=== PATIENT | female | born 1945 | race Caucasian/White ===

== ENCOUNTER 2016-06-17 05:33 | Observation (INO) | payer OTHER, MEDICARE ==
--- NOTE | ~2016-06-17 | OP ---
Record Of Operation [facility] [address] [place]. [address] NAME: LUIZ MAN : 43 STATUS : ADM Ayesha PAT#: [id number] AGE: 71 ADM/REG DATE : 06/17/16 MR#: [id number] REPORT SERV DATE: 06/17/16 DICTATED BY: OMNTY ROMO DATE: 06/17/16 REPORT STATUS : Draft TRANSCRIBED BY: MODL DATE: 06/17/16 DATE OF PROCEDURE: 06/17/2016 CARDIOVERSION REPORT PRIMARY SOIL ENGINEER: Lucy Lal MD. PROCEDURES: Elective external cardioversion. DESCRIPTION: Luiz Man brought to the short-stay unit at [facility] in a fasting state. The patient was properly identified and informed consent obtained. INRs have been demonstrated to be therapeutic over the preceding month. The patient received propofol for sedation. When she was deemed to be hemodynamically stable and adequately sedated, a single 360 joule biphasic energy delivery was performed, which resulted in initially a marked junctional bradycardia, then transition to sinus rhythm. IMPRESSION: Successful cardioversion, ending rhythm sinus. ZIA/MARISSA Monty Romo M.D. / [id number] CC: Lynne Martinez, MSN, TRAVEL FREIGHT AND PASSENGER AGENT-BC TIM Rojas
--- NOTE | ~2016-06-17 | HP ---
History And Physical [address] [place]. [address] NAME: LUIZ MAN : 43 STATUS : ADM Ayesha PAT#: [id number] AGE: 71 ADM/REG DATE : 06/17/16 MR#: [id number] REPORT SERV DATE: 06/17/16 DICTATED BY: SINDY SWIFT DATE: 06/17/16 REPORT STATUS : Draft TRANSCRIBED BY: MODL DATE: 06/17/16 DATE OF ADMISSION: 06/17/2016 PRIMARY CARE PROVIDER: Lucy Malagon MD in [place]. INSURANCE ASSOCIATE: Yg Trujillo M.D. DRAMATIC ART TEACHER: Lucy Lal M.D. CHIEF COMPLAINT: Atrial fibrillation with RVR, increased difficulty breathing on top of chronic dyspnea and nonproductive cough. HISTORY OF PRESENT ILLNESS: This is a pleasant, 71-year-old, white female with a history of DVT and acute pulmonary emboli in March 2016 with currently a supratherapeutic INR today with a history of paroxysmal atrial fibrillation in the setting of acute PE in March 2016. She reports that she has had chronic dyspnea with nonproductive productive cough for years, this has not had an evaluation. She reports this has been worse since March 2016. She denies any edema or orthopnea. She has no diagnosis of asthma or COPD. She is not on home oxygen. Her primary care provider asked her to take sugar-free cough drops for this, which do not fully help per patient. Also, she has a history of high blood pressure, high cholesterol, obesity, and debility. She also has a history of nonobstructive CAD per cath arteriogram, 11/27/2012, with a preserved ejection fraction at that time. Echocardiogram, 03/16/2016, reported mild biatrial enlargement with a preserved ejection fraction. She presents to the emergency department overnight because she had increased dyspnea with labored breathing. This was on top of her chronic mild dyspnea and nonproductive cough. She denies any chest pain, palpitations, syncope, presyncope. There was no edema or orthopnea. She reports she possibly had a slight fever to touch a few days ago, but denies any specific complaints at this time other than previously addressed. Again, she has a chronic nonproductive cough and a worsened pulmonary emboli in March. PAST MEDICAL HISTORY: 1. Chronic cough of unknown etiology, worsened acute pulmonary emboli in the fall. 2. DVT and acute pulmonary emboli diagnosed in March 2016, on chronic Coumadin anticoagulation. 3. Hypertension. 4. Hyperlipidemia. 5. Mild nonobstructive coronary artery disease per cath arteriogram, 11/27/2012. 6. Diabetes mellitus type 2. 7. Paroxysmal atrial fibrillation episode in the setting of pulmonary emboli, March 2016. 8. Anemia, on chronic iron supplementation. 9. Mild constipation. 10.Mild renal insufficiency, followed by Dr. Trujillo. 11.Rosacea, on doxycycline chronically. 12.Arthritis in the knees. 13.Wobbly/unsteady gait with subsequent lack of mobility. History And Physical [address] [address] NAME: LUIZ MAN : 43 STATUS : ADM Ayesha PAT#: [id number] AGE: 71 ADM/REG DATE : 06/17/16 MR#: [id number] REPORT SERV DATE: 06/17/16 DICTATED BY: SINDY SWIFT DATE: 06/17/16 REPORT STATUS : Draft TRANSCRIBED BY: MARISSA DATE: 06/17/16 SOCIAL HISTORY: . Remote tobacco use in the 20s. She quit at the age of 29 after smoking less than one pack per week. She denies any alcohol or illicit drug use. She denies any exercise program because she "does not feel like I can do it" since pulmonary emboli. She reports that she is very wobbly, but does not own an assistive device. She reports that she is unable to complete a shopping trip due to the above symptoms. No chest pain with exertion. No palpitations with exertion. FAMILY HISTORY: Noncontributory for arrhythmia. Two brothers with myocardial infarctions. REVIEW OF SYSTEMS: Last echocardiogram, March 2016, please see discussion above. Last cath arteriogram, 11/27/2012, with nonobstructive coronary artery disease as above per HPI. All other systems reviewed and negative. ALLERGIES: NO KNOWN ALLERGIES. HOME MEDICATIONS: List reviewed and is as follows: 1. Doxycycline 100 mg p.o. daily. 2. Ferrous sulfate 325 mg p.o. daily. 3. Amaryl 2 mg p.o. daily. 4. Glucosamine chondroitin one tablet p.o. daily. 5. Lisinopril/HCTZ one tablet p.o. daily. 6. Metoprolol tartrate 25 mg p.o. twice per day. 7. Protonix 40 mg p.o. daily. 8. MiraLAX one packet p.o. daily p.r.n. constipation. 9. Simvastatin 40 mg p.o. daily. 10.Jantoven 4 mg p.o. daily afternoon. This is managed by primary care provider. PHYSICAL EXAMINATION: VITAL SIGNS: Oxygen saturation 98% on 2 L nasal cannula; temperature 99.0; pulse initially 115, currently 90s; respiratory rate 20; blood pressure 125/71. GENERAL: Well-developed, well-nourished, obese. In no apparent distress. HEENT: Head normocephalic. No xanthelasma. Sclera clear, anicteric. Moist mucous membranes without pallor. No lymphadenopathy. No deficits noted. NECK: Trachea midline. Supple. No thyromegaly, JVD, or bruits. RESPIRATORY: Unlabored respirations. Breath sounds clear bilaterally to posterior auscultation. No wheezes, rhonchi or crackles. CARDIOVASCULAR: Irregularly irregular. No murmur, rub, or gallop appreciated. No chest wall tenderness to palpation. ABDOMEN: Soft, nontender, and nondistended. Active bowel sounds auscultated x4 quadrants. No organomegaly and no masses. No aortic bruit. EXTREMITIES: DP/PT and radial pulses 2+ bilaterally. No clubbing, cyanosis, or edema. SKIN: Warm, dry, intact. No rash. Normal turgor. MUSCULOSKELETAL: Moves all extremities in bed without difficulty. NEURO/PSYCH: Alert and oriented x3 with no acute distress. Affect appropriate to current History And Physical [address] [address] NAME: LUIZ MAN : 43 STATUS : ADM Ayesha PAT#: [id number] AGE: 71 ADM/REG DATE : 06/17/16 MR#: [id number] REPORT SERV DATE: 06/17/16 DICTATED BY: SINDY SWIFT DATE: 06/17/16 REPORT STATUS : Draft TRANSCRIBED BY: MODL DATE: 06/17/16 situation. LABORATORY DATA: BMP: Sodium 136; potassium 4.2; creatinine initially 1.38, subsequent 1.53; glucose 128; calcium 8.9; magnesium 2.1. CBC: White blood cell count 9.4; hemoglobin 11.2 with subsequent 11.7; hematocrit 36.2 with subsequent 37.2; MCV 82.5; MCH 25.9; MCHC 31.5; RDW 17.8; platelet initial 513, on recheck 560. INR initially 4.6, on recheck this morning 4.4. Troponin less than 0.02 x2. BNP 165.8. STUDIES: Chest x-ray: A small left pleural effusion and left basilar atelectasis. EKGs: Personally interpreted. Atrial fibrillation with RVR. Rate 134 at 3:54 this morning with nonspecific ST changes inferolaterally. Telemetry: Atrial fibrillation, 90s, on Cardizem drip. ASSESSMENT/PLAN: 1. Paroxysmal atrial fibrillation recurrence. This is in a patient with a prior history of paroxysmal atrial fibrillation in the fall in the setting of acute pulmonary embolism. I will keep the patient n.p.o. for a ANN and cardioversion today at [address] Middleton. Her INR is supratherapeutic at 4.6, which has come down to 4.4 this morning. We will hold her Coumadin tonight and she will follow up with her primary care provider for an INR check on Friday. Defer INR/Coumadin management to PCP. I will continue her home metoprolol at this time. Further recommendations pending for rounding physician, Dr. Romo. 2. Chronic dyspnea and cough with a preserved ejection fraction on echocardiogram in 2016. She is on 2 L nasal cannula here. Please wean as tolerated as she is not on home O2. I discussed with the patient who has not had a formal evaluation for these symptoms. She can follow up with farmworkers for evaluation outpatient, so this will be requested. 3. History of pulmonary emboli and deep venous thrombosis. Again, INR supratherapeutic. We will hold it tonight and PCP to follow. 4. Supratherapeutic INR. Please see above. 5. Diabetes mellitus type 2. Sliding scale insulin while here. 6. Chronic kidney disease. Initially, this was at baseline, 1.38. Upon recheck this morning, it was 1.5 and therefore, we will just provide her with minimal fluid hydration while she is n.p.o. for testing. Again, follow up with primary care provider in one week where they can monitor this, as she is on lisinopril and HCTZ this may need to be discontinued. 7. Obesity, is encouraged weight loss. Although, the patient reports she is too wobbly on feet to exercise. Again, I referred her to primary care provider for monitoring and potentially treatment if she needs an assistive device. 8. History of nonobstructive coronary artery disease. No chest pain. Troponins negative. Chest x-ray does show a small pleural effusion. This should be monitored by primary care provider. She will follow up with Dr. Lal in one month in the office. She likely needs to be placed on aspirin. Further recommendations are forthcoming for rounding EP physician for atrial fibrillation. History And Physical [address] [place]. [address] NAME: LUZI MAN : 43 STATUS : ADM Ayesha PAT#: [id number] AGE: 71 ADM/REG DATE : 06/17/16 MR#: [id number] REPORT SERV DATE: 06/17/16 DICTATED BY: SINDY SWIFT DATE: 06/17/16 REPORT STATUS : Draft TRANSCRIBED BY: MARISSA DATE: 06/17/16 DAVID/MARISSA Sindy Swift NP / [id number] CC: Lynne Martinez, MSN, ONLINE PROJECT MANAGER-BC Lucy Malagon M.D. Lisa Gail Carkner, M.D.
[2016-06-17 04:50] LABS: BASOPHILS 0.1 %; BASOPHILS ABSOLUTE 0.01 10/3/uL (0.0-0.16); EOSINOPHILS 0.3 %; EOSINOPHILS ABSOLUTE 0.03 10/3/uL (0.0-0.53); ER CBC TAT 0 Hrs 08 Mins; HEMATOCRIT 36.2 % (36.0-48.0); HEMOGLOBIN 11.2 g/dL (12.0-16.0); IMMATURE GRANULOCYTES 0.4 %; IMMATURE GRANULOCYTES ABSOLUTE 0.04 10/3/uL (0.0-0.11); LYMPHOCYTES 13.1 %; LYMPHOCYTES ABSOLUTE 1.23 10/3/uL (0.67-4.30); MANUAL DIFF NO %; MEAN CORPUS HGB CONC 30.9 g/dL (32.0-36.0); MEAN CORPUSCULAR HEMOGLOB 25.8 pg (26.0-34.0); MEAN CORPUSCULAR VOLUME 83.4 fL (80-100); MEAN PLATELET VOLUME 8.7 fL (9.2-13.0); MONOCYTES 12.8 %; MONOCYTES ABSOLUTE 1.21 10/3/uL (0.21-1.20); NEUTROPHILS 73.3 %; PLATELET COUNT 513 10/3/uL (150-400); RBC DISTRIBUTION WIDTH 17.4 % (12.0-16.0); RED CELL COUNT 4.34 10/6/uL (4.0-5.6); WHITE BLOOD CELLS 9.4 10/3/uL (4.5-10.5)
[2016-06-17 04:54] LABS: INTERNATIONAL NORMAL RATI 4.6 UNITS (-)
[2016-06-17 04:55] LABS: PARTIAL THROMBO TIME 105.1 SEC (22.5-37.2)
[2016-06-17 05:03] LABS: CALCIUM, SERUM 8.9 MG/DL (8.5-10.4); CHEST PAIN PROFILE TAT 0 Hrs 21 Mins; CHLORIDE, SERUM 100 MMOL/L (96-112); CREATININE 1.38 MG/DL (0.55-1.02); GFR AFRICAN AMERICAN 44 ML/MIN (>=60); GFR NON AFRICAN AMERICAN 38 ML/MIN (>=60); GLUCOSE, SERUM 128 MG/DL (60-99); POTASSIUM, SERUM 4.2 MMOL/L (3.5-5.3); SODIUM, SERUM 136 MMOL/L (135-148); TROPONIN I <0.02 NG/ML (<0.05)
[2016-06-17 05:07] LABS: BUN (BLOOD UREA NITROGEN) 21 MG/DL (6-23); CO2 (CARBON DIOXIDE) 23 MMOL/L (24-34)
[2016-06-17 05:14] LABS: PROTIME (NOT ORD) 43.3 SEC (12.0-14.5)
[~2016-06-17 05:33] MED LIST: ADOXA100 MG PO; ASAB PO; GLUCCHONDR PO; GLUCOPHAGE1000 MG PO; LOP25 PO; LOPID6 PO; NITROSTAT0.4 MG SL; NORV5 PO; VYTORIN 10/40 T1 TAB PO; ZESTORETIC1 TA1 PO
[2016-06-17] MEDS ORDERED: GLUCCHONDR PO (07:32)
[2016-06-17] MEDS ORDERED: LOP25 PO (07:32)
[2016-06-17] MEDS ORDERED: FERROUS SULF325 M1 PO (07:33)
[2016-06-17] MEDS ORDERED: JANTOVEN3 MG (07:33)
[2016-06-17] MEDS ORDERED: PROTONIX PO (07:33)
[2016-06-17] MEDS ORDERED: MONODOX100 MG PO (07:33)
[2016-06-17] MEDS ORDERED: AMARYL2 PO (07:34)
[2016-06-17] MEDS ORDERED: ZOCOR40 PO (07:34)
[2016-06-17] MEDS ORDERED: ZESTORETIC1 TA1 PO (07:34)
[2016-06-17] MEDS ORDERED: MIRALAX POWDER1 PKT PO (07:35)
[2016-06-17 08:39] LABS: TROPONIN I <0.02 NG/ML (<0.05)
[2016-06-17 10:09] LABS: BASOPHILS 0.1 %; BASOPHILS ABSOLUTE 0.01 10/3/uL (0.0-0.16); EOSINOPHILS 0.2 %; EOSINOPHILS ABSOLUTE 0.02 10/3/uL (0.0-0.53); HEMATOCRIT 37.2 % (36.0-48.0); HEMOGLOBIN 11.7 g/dL (12.0-16.0); IMMATURE GRANULOCYTES 0.3 %; IMMATURE GRANULOCYTES ABSOLUTE 0.03 10/3/uL (0.0-0.11); LYMPHOCYTES 18.3 %; MEAN CORPUS HGB CONC 31.5 g/dL (32.0-36.0); MEAN CORPUSCULAR HEMOGLOB 25.9 pg (26.0-34.0); MEAN CORPUSCULAR VOLUME 82.5 fL (80-100); MEAN PLATELET VOLUME 9.3 fL (9.2-13.0); MONOCYTES 10.8 %; NEUTROPHILS 70.3 %; NEUTROPHILS ABSOLUTE 6.53 10/3/uL (2.02-8.40); PLATELET COUNT 560 10/3/uL (150-400); RBC DISTRIBUTION WIDTH 17.8 % (12.0-16.0); RED CELL COUNT 4.51 10/6/uL (4.0-5.6); WHITE BLOOD CELLS 9.3 10/3/uL (4.5-10.5)
[2016-06-17 10:11] LABS: MANUAL DIFF NO %
[2016-06-17 10:17] LABS: INTERNATIONAL NORMAL RATI 4.4 UNITS (-); PROTIME (NOT ORD) 41.6 SEC (12.0-14.5)
[2016-06-17 10:28] LABS: A/G RATIO 0.5 (0.7-1.9); ALBUMIN 2.5 G/DL (3.5-5.0); ALKALINE PHOSPHATASE 78 U/L (45-117); BUN (BLOOD UREA NITROGEN) 22 MG/DL (6-23); CHLORIDE, SERUM 100 MMOL/L (96-112); CO2 (CARBON DIOXIDE) 25 MMOL/L (24-34); CREATININE 1.53 MG/DL (0.55-1.02); GFR AFRICAN AMERICAN 39 ML/MIN (>=60); GFR NON AFRICAN AMERICAN 34 ML/MIN (>=60); GLOBULIN 5.2 G/DL (2.5-4.1); GLUCOSE, SERUM 119 MG/DL (60-99); POTASSIUM, SERUM 4.5 MMOL/L (3.5-5.3); SGOT(AST) 25 U/L (5-40); SGPT(ALT) 25 U/L (5-65); SODIUM, SERUM 137 MMOL/L (135-148); TOTAL BILIRUBIN 0.4 MG/DL (0-1.2); TOTAL PROTEIN 7.7 G/DL (6.0-8.5)
== END 2016-06-17 17:13 | disposition home or self-care (01) ==
LOC: ER 05:33 → ER/OF 06:44 → CDU1 07:32
PROVIDERS: Nurse Practitioner Family; Specialist
DX: I48.0 Paroxysmal atrial fibrillation (principal); I12.9 Hypertensive chronic kidney disease with stage 1 through stage 4 chronic kidney disease, or unspecified chronic kidney disease; E11.22 Type 2 diabetes mellitus with diabetic chronic kidney disease; N18.9 Chronic kidney disease, unspecified; E66.9 Obesity, unspecified; E78.5 Hyperlipidemia, unspecified; D64.9 Anemia, unspecified; M17.0 Bilateral primary osteoarthritis of knee; I25.10 Atherosclerotic heart disease of native coronary artery without angina pectoris; Z86.718 Personal history of other venous thrombosis and embolism; Z86.711 Personal history of pulmonary embolism; Z87.891 Personal history of nicotine dependence; Z79.899 Other long term (current) drug therapy; Z79.2 Long term (current) use of antibiotics; Z90.89 Acquired absence of other organs; Z98.51 Tubal ligation status
CPT/HCPCS: 71010; 80048; 80053; 82962; 83735; 83880; 84484; 85025; 85610; 85730; 92960; 93005; 96365; 96376; 99285; A9270-GY; G0378